=== PATIENT | female | born 1965 | race Caucasian/White ===

== ENCOUNTER → 2018-05-06 | Outpatient (CLI) | payer MEDICAID ==
[~2018-05-06] MED LIST: ASPIRIN 81M81 MG/TA2 PO; CATAPRES 0.1MG0.1 MG PO; NORCO 325 MG-51 TAB PO; NORVASC 10MG10 MG PO; PRINIVIL20 MG PO; TYLENOL 325MG325 MG PO; ZANTAC 150MG T150 MG PO
== END ==
LOC: COL.VAS 12:01
DX: N18.4 Chronic kidney disease, stage 4 (severe) (principal)
CPT/HCPCS: G0365